=== PATIENT | female | born 1975 | race Caucasian/White ===

== ENCOUNTER 2024-05-16 19:26 | Emergency (ER) | payer SELFPAY ==
[2024-05-16] VITALS (17 sets, daily range): BP systolic 103–175; BP diastolic 62–107; PULSE 56–91; RESP 15–22; O2SAT 94–99; BMI 23.1
--- NOTE | 2024-05-16 19:38 | PC.NURSE ---
Addendum entered by Doroteo Spangler R.N. 05/16/24 22:50: Note below should state, Pt is altered not Pt is alerted... Original Note: Pt is alerted and speech is nonsensical. She has intermittent periods of unresponsiveness. Breathing and pulse present and WNL during periods of unresponsiveness. She is thrashing and punching at staff. She states, En farto and fuck. Asked if patient is in pain and she does not answer. She does not make eye contact and screams at this RN and other staff. She is wearing jeans and they are visibly wet near her jayla area. She has blood shot eyes. Lips are chapped and very dry. Provider Blaze is made aware and new orders placed.
--- NOTE | 2024-05-16 19:38 | ED.GENADULT ---
HPI - General Adult General Chief complaint: Toxicology Problem Stated complaint: Collapsed after ETOH consumption Time Seen by Provider: 05/16/24 19:34 History of Present Illness HPI narrative: 49-year-old female arrived by EMS with agitation, no known trauma, apparently she had been drinking alcohol at scene, no other historians. No known thoughts of wanting to hurt herself or others, but details otherwise not known. No other history available. Related Data Allergies Allergy/AdvReac Type Severity Reaction Status Date / Time No Known Drug Allergies Allergy Verified 05/17/24 00:19 Review of Systems Review of Systems Narrative: See HPI, limited history due to agitation and lack of other historians Exam Narrative Exam Narrative: GENERAL: Well-developed patient, in mild distress. Persistently agitated, non directable HEAD: Atraumatic. Normocephalic. EYES: Pupils equal round and reactive. Extraocular motions intact. No scleral icterus. No injection or drainage. ENT: Nose without bleeding, purulent drainage. Throat without erythema, tonsillar hypertrophy or exudate. Airway patent. NECK: Trachea midline. Non tender CARDIOVASCULAR: Regular rate and rhythm without murmurs, gallops, or rubs. RESPIRATORY: Clear to auscultation. Breath sounds equal bilaterally. No wheezes, rales, or rhonchi. GASTROINTESTINAL: Abdomen soft, non-tender, nondistended. EXTREMITIES: No edema or joint tenderness. BACK: Nontender without deformity or crepitance. No flank tenderness. NEURO: AOx3. Motor functions grossly nonfocal, did not really follow commands, but screaming, looking around, speaking [place] raises, moving arms and legs spontaneously but not to command SKIN: No rash or erythema of visible areas Initial Vital Signs Initial Vital Signs: Vital Signs Blood Pressure 153/100 H 05/16/24 19:28 Course Orders Ordered: ED Orders 05/17/24 00:10 Urine Drug Screen, Rapid Stat 05/17/24 02:20 Ethanol (ETOH) Stat Discontinued Medications Diphenhydramine HCl (Diphenhydramine 50 Mg/Ml Vial) 50 mg IM NOW ONE Stop: 05/16/24 19:52 Last Admin: 05/16/24 19:59 Dose: 50 mg Documented By: Haloperidol (Haloperidol 5 Mg/Ml Vial) 5 mg IM NOW ONE Stop: 05/16/24 19:52 Last Admin: 05/16/24 19:59 Dose: 5 mg Documented By: Lorazepam (Lorazepam 2 Mg/Ml Inj) 1 mg IV NOW ONE Stop: 05/16/24 19:35 Last Admin: 05/16/24 19:44 Dose: 1 mg Documented By: ANGI Vital Signs Vital signs: Vital Signs - 8 hr 05/16/24 22:00 05/16/24 22:00 05/16/24 22:01 Pulse Rate 60 60 Respiratory Rate 16 18 Blood Pressure 116/70 116/70 Pulse Oximetry 96 98 Oxygen Delivery Method Room Air 05/16/24 22:30 05/16/24 22:30 05/16/24 23:00 Pulse Rate 66 Respiratory Rate 16 Blood Pressure 108/62 104/66 Pulse Oximetry 96 Oxygen Delivery Method 05/16/24 23:00 05/16/24 23:30 05/16/24 23:30 Pulse Rate 56 L 58 L Respiratory Rate 15 16 Blood Pressure 110/64 Pulse Oximetry 96 95 Oxygen Delivery Method 05/17/24 00:31 05/17/24 05:20 Pulse Rate 70 87 Respiratory Rate 18 16 Blood Pressure 122/80 145/87 H Pulse Oximetry 98 98 Oxygen Delivery Method Room Air Room Air Medical Decision Making Lab Data Lab results reviewed: Yes I reviewed the patient's lab results. Lab results narrative: White blood cell count 44005, hemoglobin 15, platelets normal. Glucose 105, electrolytes unremarkable. Blood alcohol level greater than 300. Acetaminophen negative, salicylate level negative, UDS pending. 05/16/24 19:40 05/16/24 19:40 Labs: Lab Results 05/16/24 05/17/24 05/17/24 Range/Units 19:40 00:10 00:10 WBC 11.0 (4.5-11.0) X10^3/uL RBC 4.82 (4.0-5.2) X10^6/uL Hgb 15.6 (12.0-16.0) g/dL Hct 45.9 (36-46) % MCV 95.4 (80-100) fL MCH 32.5 (26-34) PG MCHC 34.0 (30-36) % RDW 13.1 (11.6-14.8) % Plt Count 304 (150-400) X10^3/uL Neut % (Auto) 42.7 L (50-75) % Lymph % (Auto) 46.7 H (25-40) % [place] % (Auto) 7.9 (3-14) % Eos % (Auto) 1.7 L (2-4) % Baso % (Auto) 1.0 (0-2) % Neut # (Auto) 4700 (0629-3505) /uL Lymph # (Auto) 5100 H (0551-8816) /uL [place] # (Auto) 900 (0-900) /uL Eos # (Auto) 200 (0-450) /uL Baso # (Auto) 100 (0-100) /uL PT 10.2 (9.4-12.5) SECONDS INR 0.9 (0.9-1.3) APTT 36 (25.1-36.5) SECONDS Sodium 142 (137-145) mmol/L Potassium 3.6 (3.4-5.1) mmol/L Chloride 106 (98-107) mmol/L Carbon Dioxide 27 (22-32) mmol/L BUN 15 (7-17) mg/dL Creatinine 0.58 (0.52-1.04) mg/dL Estimated GFR > 60 (>60) mL/min BUN/Creatinine Ratio 25.9 H (6-22) Glucose 105 H (70-100) mg/dL Lactate 1.9 (0.7-2.1) mmol/L Calcium 10.0 (8.4-10.2) mg/dL Total Bilirubin 0.5 (0.2-1.3) mg/dL AST 33 (14-36) IU/L ALT 26 (<35) IU/L Alkaline Phosphatase 65 (38-126) U/L Total Protein 7.4 (6.3-8.2) g/dL Albumin 4.7 (3.5-5.0) g/dL Globulin 2.7 (1.7-4.1) g/dL Albumin/Globulin Ratio 1.7 (1.0-2.8) TSH 1.59 (0.47-4.68) uIU/mL Prolactin 23.6 H (3.0-18.6) ng/mL Urine Color Yellow Urine Appearance Clear Urine pH 6.0 TNP (4.5-8.0) Ur Specific [place] <=1.005 (1.000-1.035) Urine Protein Negative (Negative) Urine Glucose (UA) Negative (Negative) g/dL Urine Ketones Negative (NEGATIVE) Urine Occult Blood Negative (Negative) Urine Nitrate Negative (Negative) Urine Bilirubin Negative (NEGATIVE) Urine Urobilinogen 0.2 (0.2) E.U./dL Ur Leukocyte Esterase Negative (NEGATIVE) Urine RBC None seen (0-5/HPF) Urine WBC None seen (0-5/HPF) Ur Squamous Epith Cells None seen (0-5/HPF) Urine Bacteria None seen (None) Ur Culture Indicated? Cult not indicated Vol Urine Centrifuged 10ml (spun) Salicylates < 1.0 (<20) mg/dL U Opiates 300ng/mL cut Negative (Negative) Ur Oxycodone Screen Negative (Negative) Urine Methadone Screen Negative (Negative) Acetaminophen < 10 (10-30) ug/mL Ur Barbiturates Screen Negative (Negative) U Tricyclic Antidepress Negative (Negative) Ur Phencyclidine Scrn Negative (Negative) Ur Amphetamines Screen Negative (Negative) U Methamphetamines Scrn Negative (Negative) Ur MDMA Scrn (Ecstasy) Negative (Negative) U Benzodiazepines Scrn Negative (Negative) Urine Cocaine Screen Negative (Negative) U Marijuana (THC) Screen Negative (Negative) Urine Specific [place] TNP Ethyl Alcohol > 300 H ( - 10) mg/dL Ur Creatinine TNP 05/17/24 Range/Units 02:20 WBC (4.5-11.0) X10^3/uL RBC (4.0-5.2) X10^6/uL Hgb (12.0-16.0) g/dL Hct (36-46) % MCV (80-100) fL MCH (26-34) PG MCHC (30-36) % RDW (11.6-14.8) % Plt Count (150-400) X10^3/uL Neut % (Auto) (50-75) % Lymph % (Auto) (25-40) % [place] % (Auto) (3-14) % Eos % (Auto) (2-4) % Baso % (Auto) (0-2) % Neut # (Auto) (2031-3247) /uL Lymph # (Auto) (2075-8925) /uL [place] # (Auto) (0-900) /uL Eos # (Auto) (0-450) /uL Baso # (Auto) (0-100) /uL PT (9.4-12.5) SECONDS INR (0.9-1.3) APTT (25.1-36.5) SECONDS Sodium (137-145) mmol/L Potassium (3.4-5.1) mmol/L Chloride (98-107) mmol/L Carbon Dioxide (22-32) mmol/L BUN (7-17) mg/dL Creatinine (0.52-1.04) mg/dL Estimated GFR (>60) mL/min BUN/Creatinine Ratio (6-22) Glucose (70-100) mg/dL Lactate (0.7-2.1) mmol/L Calcium (8.4-10.2) mg/dL Total Bilirubin (0.2-1.3) mg/dL AST (14-36) IU/L ALT (<35) IU/L Alkaline Phosphatase (38-126) U/L Total Protein (6.3-8.2) g/dL Albumin (3.5-5.0) g/dL Globulin (1.7-4.1) g/dL Albumin/Globulin Ratio (1.0-2.8) TSH (0.47-4.68) uIU/mL Prolactin (3.0-18.6) ng/mL Urine Color Urine Appearance Urine pH (4.5-8.0) Ur Specific [place] (1.000-1.035) Urine Protein (Negative) Urine Glucose (UA) (Negative) g/dL Urine Ketones (NEGATIVE) Urine Occult Blood (Negative) Urine Nitrate (Negative) Urine Bilirubin (NEGATIVE) Urine Urobilinogen (0.2) E.U./dL Ur Leukocyte Esterase (NEGATIVE) Urine RBC (0-5/HPF) Urine WBC (0-5/HPF) Ur Squamous Epith Cells (0-5/HPF) Urine Bacteria (None) Ur Culture Indicated? Vol Urine Centrifuged Salicylates (<20) mg/dL U Opiates 300ng/mL cut (Negative) Ur Oxycodone Screen (Negative) Urine Methadone Screen (Negative) Acetaminophen (10-30) ug/mL Ur Barbiturates Screen (Negative) U Tricyclic Antidepress (Negative) Ur Phencyclidine Scrn (Negative) Ur Amphetamines Screen (Negative) U Methamphetamines Scrn (Negative) Ur MDMA Scrn (Ecstasy) (Negative) U Benzodiazepines Scrn (Negative) Urine Cocaine Screen (Negative) U Marijuana (THC) Screen (Negative) Urine Specific [place] Ethyl Alcohol 249 H ( - 10) mg/dL Ur Creatinine Point of Care Testing Glucose POC 106 Point of care testing: Point of Care Testing Glucose POC 106 MDM Narrative Medical decision making narrative: 49-year-old female with persisting agitation, reported alcohol use, no obvious trauma. Non directable. BGM 106. IM Haldol/Benadryl, IV/IM benzodiazepine. Labs pending if can be collected. 2030, patient sleeping, seems to be protecting her airway well. Lab results pending. BAL greater than 300 noted, electrolytes unremarkable, glucose 100 noted. 0220, repeat blood alcohol level 249, decreasing. Patient now verbalizing but still fairly sleepy per nursing, maintains airway. Consider [employer]S TECHNICIAN consult when available later this morning. 0520, alert, cooperative, can not recall being agitated, can not recall drinking alcohol, does not have thoughts of hurting herself or others. She would like to go home, still has alcohol in her system however. She would like to call her friend Majo to come get her. Encouraged to stop drinking alcohol. Discharge Plan Departure Patient Disposition: Home Clinical Impression: Alcoholic intoxication, Agitation Activity Restrictions/Additional Instructions: Agitation with elevated alcohol level, no obvious trauma. Screening labs otherwise unremarkable. You slept for a number of hours, your agitation diminished. You were discharged with sober appearing friend adult rear load truck driver. You did not express thoughts of hurting self or others. You did not want to stay for social worker psychiatric consultation or detox services. You are encouraged to stop drinking alcohol. Stand Alone Forms: Patient Portal/API
[2024-05-16] MEDS: LORazepam 2 MG/ML INJ 1 MG IV (19:44)
[2024-05-16] MEDS: HALOPERIDOL 5 MG/ML VIAL IM (19:59)
[2024-05-16] MEDS: diphenhydrAMINE 50 MG/ML VIAL IM (19:59)
[2024-05-16 20:01] LABS: INR 0.9 (0.9-1.3); Prothrombin Time 10.2 SECONDS (9.4-12.5)
[2024-05-16 20:04] LABS: PTT Partial Thromboplastin Tim 36 SECONDS (25.1-36.5)
[2024-05-16 20:13] LABS: Acetaminophen < 10 ug/mL (10-30); Alanine Aminotransferase 26 IU/L (<35); Albumin 4.7 g/dL (3.5-5.0); Albumin Globulin Ratio 1.7 (1.0-2.8); Alkaline Phosphatase 65 U/L (38-126); Aspartate Aminotransferase 33 IU/L (14-36); BUN Creatinine Ratio 25.9 (6-22); Bilirubin Total 0.5 mg/dL (0.2-1.3); Blood Urea Nitrogen 15 mg/dL (7-17); Carbon Dioxide 27 mmol/L (22-32); Chloride 106 mmol/L (98-107); Estimated Glomerular Filt Rate > 60 mL/min (>60); Ethanol (ETOH) > 300 mg/dL; Globulin 2.7 g/dL (1.7-4.1); Glucose 105 mg/dL (70-100); HEMOLYSIS < 15 (0-50); Lactate (Lactic Acid) 1.9 mmol/L (0.7-2.1); Potassium 3.6 mmol/L (3.4-5.1); Salicylate < 1.0 mg/dL (<20); Sodium 142 mmol/L (137-145); Total Protein 7.4 g/dL (6.3-8.2)
[2024-05-16 20:23] LABS: Add Manual Diff / Slide Review NO; Basophils Absolute Auto 100 /uL (0-100); Eosinophils Absolute Auto 200 /uL (0-450); Eosinophils Percent Auto 1.7 % (2-4); Hematocrit 45.9 % (36-46); Hemoglobin 15.6 g/dL (12.0-16.0); Lymphocytes Absolute Auto 5100 /uL (1100-4500); Lymphocytes Percent Auto 46.7 % (25-40); Mean Corpuscular Hemoglobin 32.5 PG (26-34); Mean Corpuscular Volume 95.4 fL (80-100); Monocytes Absolute Auto 900 /uL (0-900); Monocytes Percent Auto 7.9 % (3-14); Neutrophils Absolute Auto 4700 /uL (1500-7000); Neutrophils Percent Auto 42.7 % (50-75); Platelet Count 304 X10^3/uL (150-400); Red Blood Cell Count 4.82 X10^6/uL (4.0-5.2); Red Cell Distribution Width 13.1 % (11.6-14.8)
[2024-05-16 20:29] LABS: Prolactin 23.6 ng/mL (3.0-18.6)
[2024-05-16 21:30] LABS: Thyroid Stimulating Hormone 1.59 uIU/mL (0.47-4.68)
--- NOTE | 2024-05-16 21:51 | PC.NURSE ---
attempted to wake pt in order to obtain a urine sample as well as get them changed into safety scrubs. Could not wake pt so seizure pads are placed on both sides of the bed and she is still in her own clothes at this time.
--- NOTE | 2024-05-16 22:49 | PC.NURSE ---
This RN checks on patient. Respirations observed and are 16. Pt remains on the monitor with a sitter 1:1 at bedside.
[2024-05-17 00:23] LABS: Appearance Urine UA CLEAR; Bilirubin Urine UA NEGATIVE (NEGATIVE); Color Urine UA YELLOW; Glucose Urine UA NEGATIVE (Negative); Ketones Urine UA NEGATIVE (NEGATIVE); Leukocyte Esterase Urine UA NEGATIVE (NEGATIVE); Nitrite Urine UA NEGATIVE (Negative); Occult Blood Urine UA NEGATIVE (Negative); Protein Urine UA NEGATIVE (Negative); Specific Gravity Urine UA <=1.005 (1.000-1.035); Urobilinogen Urine UA 0.2 E.U./dL (0.2)
[2024-05-17 00:29] LABS: UR Morphine/Opiate cutoff 300 Negative (Negative); Urine Amphetamines Negative (Negative); Urine Barbiturates Negative (Negative); Urine Benzodiazepines Negative (Negative); Urine Cocaine Negative (Negative); Urine MDMA Negative (Negative); Urine Methadone Negative (Negative); Urine Methamphetamines Negative (Negative); Urine Oxycodone Negative (Negative); Urine Phencyclidine Negative (Negative); Urine Tetrahydrocannabinol Negative (Negative); Urine Tricyclic Antidepressant Negative (Negative)
[2024-05-17 00:30] VITALS: PULSE 78; O2SAT 98
[2024-05-17 00:30] LABS: Bacteria Urine None Seen; Culture Indicated Urine Cult Not Indicated; RBC Urine None Seen (0-5/HPF); Squamous Epithelial Cell Urine None Seen (0-5/HPF); Urine Volume 10mL (spun); WBC Urine None Seen (0-5/HPF)
[2024-05-17 00:31] VITALS: BP 122/80; PULSE 70; PULSE 76; RESP 18; O2SAT 98
[2024-05-17 02:38] LABS: Ethanol (ETOH) 249 mg/dL
[2024-05-17 05:18] VITALS: PULSE 95; O2SAT 98
[2024-05-17 05:19] VITALS: BP 173/102; PULSE 98; O2SAT 98
[2024-05-17 05:20] VITALS: BP 145/87; PULSE 87; RESP 16; O2SAT 98
[2024-05-17 05:22] VITALS: BP 145/87; PULSE 86; O2SAT 99
--- NOTE | 2024-05-17 06:21 | PC.NURSE ---
Pt appears to be sleeping well. Visible chest rise and fall. Will continue to monitor while ETOH is metabolizing.
== END 2024-05-17 06:10 | disposition home or self-care (01) ==
PROVIDERS: Emergency Provider Emergency Medicine
DX: F10.129 Alcohol abuse with intoxication, unspecified (principal); Y90.8 Blood alcohol level of 240 mg/100 ml or more; R45.1 Restlessness and agitation
CPT/HCPCS: 36415; 80053; 80305; 80320; 80329; 81001; 82962; 83605; 84146; 84443; 85025; 85610; 85730; 96372; 96374; 99284; G0480; J1200; J1630; J2060